=== PATIENT | female | born 1995 | race Native Hawaiian/Other Pacific Islander ===

== ENCOUNTER 2016-03-16 16:06 | Emergency (ER) | payer OTHER ==
[~2016-03-16] VITALS: Ht 165.1 cm; Wt 127.3 kg
[2016-03-16 16:17] VITALS: BP 123/84; TEMP 97.8
[2016-03-16 17:41] VITALS: PULSE 71
== END 2016-03-16 17:42 | disposition home or self-care (01) ==
LOC: COL.ER 16:06
DX: S63.502A Unspecified sprain of left wrist, initial encounter (principal); S63.617A Unspecified sprain of left little finger, initial encounter; V47.5XXA Car driver injured in collision with fixed or stationary object in traffic accident, initial encounter

== ENCOUNTER 2016-07-30 23:44 | Emergency (ER) | payer BC ==
[~2016-07-30] VITALS: Ht 165.1 cm; Wt 131.8 kg
[2016-07-30 23:48] VITALS: BP 120/83; PULSE 69; TEMP 98
[2016-07-30] MEDS ORDERED: BIRTH CONTROL PO (23:50)
[2016-07-31] MEDS ORDERED: NORCO 325 MG-51 TAB PO (00:06)
[2016-07-31] MEDS ORDERED: AMOXICILLIN 50500 MG PO (00:06)
== END 2016-07-31 00:18 | disposition home or self-care (01) ==
LOC: COL.ER 23:44
DX: K08.89 Other specified disorders of teeth and supporting structures (principal)

== ENCOUNTER 2017-03-13 09:25 | Emergency (ER) | payer SELFPAY ==
[~2017-03-13] VITALS: Ht 165.1 cm; Wt 144.5 kg
[~2017-03-13 09:25] MED LIST: AMOXICILLIN 50500 MG PO; BIRTH CONTROL PO; NORCO 325 MG-51 TAB PO
[2017-03-13 09:38] VITALS: BP 101/65
[2017-03-13 10:13] LABS: INFLUENZA A POSITIVE; INFLUENZA B NEGATIVE
[2017-03-13 11:59] VITALS: PULSE 105; TEMP 98.9
== END 2017-03-13 11:58 | disposition home or self-care (01) ==
LOC: COL.ER 09:25
PROVIDERS: Physician Assistant
DX: J09.X2 Influenza due to identified novel influenza A virus with other respiratory manifestations (principal); E66.01 Morbid (severe) obesity due to excess calories; Z68.43 Body mass index [BMI] 50.0-59.9, adult

== ENCOUNTER 2017-04-22 05:25 | Emergency (ER) | payer SELFPAY ==
[~2017-04-22] VITALS: Ht 165.1 cm; Wt 144.5 kg
[2017-04-22 05:26] VITALS: TEMP 98.5
[2017-04-22 05:48] LABS: BASO # 0.1 (0.0-0.2); BASO % 0.6 % (0.0-2.0); EOS # 0.3 (0.0-0.7); EOS % 4.1 % (0-4.0); GRAN # 5.7 (1.4-6.5); GRAN % 70.4 % (42.2-75.2); HEMATOCRIT 40.5 % (37.0-47.0); HEMOGLOBIN 13.5 g/dl (12.5-16.0); LYMPH % 12.8 % (20.0-51.0); MEAN CELL VOLUME 86 fl (80.0-100.0); MEAN CORPUSCULAR HEMOGLOBIN 29 pg (27.0-31.0); MEAN CORPUSCULAR HGB CONC 33 g/dl (33.0-37.0); MEAN PLATELET VOLUME 10.1 fl (7.4-10.4); MONO # 0.9 (0.1-0.6); MONO % 11.7 % (1.7-9.3); PLATELET COUNT 328 K/mm3 (130-400); RED BLOOD COUNT 4.71 M/mm3 (4.10-5.30); REDCELL DISTRIBUTION WIDTH-CV 13.4 % (11.5-14.5)
[2017-04-22 06:00] LABS: COLLECTION METHOD CLEAN CATCH
[2017-04-22 06:01] LABS: ALANINE AMINOTRANSFERASE 48 U/L (9-52); ALBUMIN 4.2 gm/dL (3.5-5.0); ALKALINE PHOSPHATASE 84 U/L (50-136); ANION GAP 7 mmol/L (7-16); AST,SGOT 27 U/L (15-37); BILIRUBIN,TOTAL 0.3 mg/dL (0.0-1.0); BLOOD UREA NITROGEN 12 mg/dL (7-17); CALCIUM 9.3 mg/dL (8.4-10.2); CARBON DIOXIDE 26 mmol/L (22-30); CHLORIDE 104 mmol/L (98-107); CREATININE, serum 0.94 mg/dL (0.52-1.25); GLUCOSE 134 mg/dL (74-106); POTASSIUM 4.2 mmol/L (3.4-5.0); SODIUM 137 mmol/L (137-145); TOTAL PROTEIN 7.4 gm/dL (6.4-8.2)
[2017-04-22 06:06] LABS: ACETAMINOPHEN < 10 ug/mL (10-30); ALCOHOL(ethanol),MEDICAL < 10 mg/dL; SALICYLATE < 1.0 mg/dL
[2017-04-22 06:15] LABS: MUCOUS Present /lpf; PH 6 (5-8); URINE APPEARANCE Hazy; URINE BACTERIA None Seen /hpf; URINE BILIRUBIN Negative (NEGATIVE); URINE BLOOD 3+ (NEGATIVE); URINE COLOR Yellow; URINE GLUCOSE Negative (NEGATIVE); URINE KETONE Negative (NEGATIVE); URINE LEUKOCYTE ESTERASE 2+ (NEGATIVE); URINE NITRATE Negative (NEGATIVE); URINE PROTEIN(semi-quant) Negative (NEGATIVE); URINE RBC 20-50 /hpf; URINE UROBILINOGEN Negative (NEGATIVE)
[2017-04-22 06:21] LABS: TRICYCLIC ANTIDEPRESS URINE NEGATIVE
[2017-04-22 11:09] VITALS: BP 114/83; PULSE 86
== END 2017-04-22 13:00 ==
LOC: COL.ER 05:25
PROVIDERS: Emergency Medicine
DX: F32.9 Major depressive disorder, single episode, unspecified (principal); F17.210 Nicotine dependence, cigarettes, uncomplicated

== ENCOUNTER 2017-10-16 18:29 | Emergency (ER) | payer SELFPAY ==
[~2017-10-16] VITALS: Ht 165.1 cm; Wt 147.3 kg
[2017-10-16 18:34] VITALS: BP 130/79; TEMP 97.7
[2017-10-16 19:05] LABS: HEMATOCRIT 47.4 % (37.0-47.0); HEMOGLOBIN 15.7 g/dl (12.5-16.0); MEAN CELL VOLUME 84 fl (80.0-100.0); MEAN CORPUSCULAR HEMOGLOBIN 28 pg (27.0-31.0); MEAN CORPUSCULAR HGB CONC 33 g/dl (33.0-37.0); MEAN PLATELET VOLUME 9.8 fl (7.4-10.4); PLATELET COUNT 411 K/mm3 (130-400); RED BLOOD COUNT 5.66 M/mm3 (4.10-5.30); REDCELL DISTRIBUTION WIDTH-CV 12.9 % (11.5-14.5)
[2017-10-16 19:11] LABS: ALBUMIN 4.4 gm/dL (3.5-5.0); BILIRUBIN,TOTAL 0.6 mg/dL (0.0-1.0); C-REACTIVE PROTEIN 0.6 mg/dL (0.0-0.9); CALCIUM 9.2 mg/dL (8.4-10.2); CREATININE, serum 1.14 mg/dL (0.52-1.25); POTASSIUM 3.9 mmol/L (3.4-5.0); TOTAL PROTEIN 7.9 gm/dL (6.4-8.2)
[2017-10-16 19:38] LABS: BAND 4 % (0-10); EOSINOPHIL 1 % (0-4); LYMPHOCYTE 4 % (20.0-51.0); NEUTROPHILS 88 % (42.0-75.2); PLATELET ESTIMATE NORMAL (NORMAL)
[2017-10-16 20:32] LABS: COLLECTION METHOD CLEAN CATCH
[2017-10-16 20:47] LABS: MUCOUS Present /lpf; PH 5 (5-8); URINE APPEARANCE Clear; URINE BACTERIA Rare /hpf; URINE BILIRUBIN Negative (NEGATIVE); URINE BLOOD 2+ (NEGATIVE); URINE COLOR Yellow; URINE GLUCOSE Negative (NEGATIVE); URINE KETONE Negative (NEGATIVE); URINE LEUKOCYTE ESTERASE 1+ (NEGATIVE); URINE NITRATE Negative (NEGATIVE); URINE PROTEIN(semi-quant) Negative (NEGATIVE); URINE UROBILINOGEN Negative (NEGATIVE)
[2017-10-16] MEDS ORDERED: ZOFRAN ODT4 MG PO (21:10)
[2017-10-16 21:19] VITALS: PULSE 71
== END 2017-10-16 21:20 | disposition home or self-care (01) ==
LOC: COL.ER 18:29
PROVIDERS: Nurse Practitioner
DX: R11.2 Nausea with vomiting, unspecified (principal); R10.13 Epigastric pain; R19.7 Diarrhea, unspecified; F41.9 Anxiety disorder, unspecified; F32.9 Major depressive disorder, single episode, unspecified; F17.210 Nicotine dependence, cigarettes, uncomplicated
CPT/HCPCS: J1170; J1885; J2405; J7030; Q9967

== ENCOUNTER 2017-12-01 19:26 | Emergency (ER) | payer SELFPAY ==
[~2017-12-01] VITALS: Ht 167.6 cm; Wt 160.0 kg
[~2017-12-01 19:26] MED LIST changes: +ZOFRAN ODT4 MG PO
[2017-12-01 19:33] VITALS: TEMP 99.3
[2017-12-01 20:21] LABS: COLLECTION METHOD CLEAN CATCH
[2017-12-01 20:28] LABS: MUCOUS Present /lpf; PH 5 (5-8); SQUAMOUS EPITHELIAL 20-50 /hpf; URINE APPEARANCE Cloudy; URINE BACTERIA None Seen /hpf; URINE BILIRUBIN Negative (NEGATIVE); URINE BLOOD Negative (NEGATIVE); URINE COLOR Yellow; URINE GLUCOSE Negative (NEGATIVE); URINE KETONE Negative (NEGATIVE); URINE LEUKOCYTE ESTERASE 3+ (NEGATIVE); URINE NITRATE Negative (NEGATIVE); URINE PROTEIN(semi-quant) Negative (NEGATIVE)
[2017-12-01] MEDS ORDERED: CEPHALEXIN500 M1 PO (21:08)
[2017-12-01] MEDS ORDERED: FLAGYL500 MG PO (21:27)
[2017-12-01 22:11] VITALS: BP 136/92; PULSE 86
== END 2017-12-01 22:09 | disposition home or self-care (01) ==
LOC: COL.ER 19:26
PROVIDERS: Emergency Medicine
DX: N39.0 Urinary tract infection, site not specified (principal); N76.0 Acute vaginitis; F32.9 Major depressive disorder, single episode, unspecified; F41.9 Anxiety disorder, unspecified; Z87.42 Personal history of other diseases of the female genital tract
CPT/HCPCS: J0696; J1885